=== PATIENT | female | born 1985 | race African-American/Black ===

== ENCOUNTER 2022-06-11 13:14 | Emergency (ER) | payer BC, MEDICAID ==
[~2022-06-11] VITALS: Ht 177.8 cm; Wt 105.0 kg
[2022-06-11] MEDS ORDERED: ONDANSETRON ODT 4 MG TAB PO ONE (14:00)
[2022-06-11] MEDS ORDERED: cloNIDine HCL 0.1 MG TAB PO ONE (14:00)
[2022-06-11] MEDS ORDERED: HYDROcodone-ACET 10/325MG TAB PO ONE (14:00)
[2022-06-11 14:31] LABS: Basophils # (auto) 0 10 ^3/uL (0-0.2); Basophils % (auto) 0.7 % (0.0-2.0); Eosinophils # (auto) 0.1 10 ^3/uL (0-0.8); Hematocrit 46.2 % (36.0-46.0); Hemoglobin 15.4 g/dL (12.2-16.2); Lymphocytes # (auto) 1.5 10 ^3/uL (0.4-5.4); Lymphocytes % (auto) 31.1 % (10.0-50.0); Mean Corpuscular Hemoglobin 29.6 pg (28.0-32.0); Mean Corpuscular Hgb Conc. 33.3 g/dL (32.0-36.0); Mean Corpuscular Volume 88.9 fL (80.0-100.0); Monocytes # (auto) 0.4 10 ^3/uL (0-1.3); Monocytes % (auto) 8.2 % (0.0-12.0); Neutrophils # (auto) 2.7 10 ^3/uL (1.6-8.6); Nucleated Red Blood Cells % 0.2 %; Red Blood Cells 5.19 10^6/uL (4.0-5.20); Red Cell Distribution Width 14.4 % (11.8-14.3); White Blood Cell 4.8 10^3/uL (4.4-10.8)
[2022-06-11 14:48] LABS: Albumin 3.4 g/dL (3.4-5.0); BUN/Creatinine Ratio 8.9; Calcium 8.8 mg/dL (8.5-10.1); Potassium 3.8 mmol/L (3.5-5.1)
[2022-06-11 14:51] LABS: Bilirubin, Total 0.2 mg/dL (0.2-1.0); Total Protein 7.7 g/dL (6.4-8.2)
[2022-06-11 16:25] VITALS: BP 139/95
== END 2022-06-11 16:27 | disposition home or self-care (01) ==
LOC: ER 13:14
DX: G43.909 Migraine, unspecified, not intractable, without status migrainosus (principal); I16.0 Hypertensive urgency; Z90.89 Acquired absence of other organs
CPT/HCPCS: 36415; 70450; 80053; 85025; 99284; Q0162

== ENCOUNTER 2022-12-08 04:23 | Emergency (ER) | payer BC, MEDICAID ==
[~2022-12-08] VITALS: Ht 152.4 cm; Wt 94.6 kg
[~2022-12-08 04:23] MED LIST: PRED20TA2 PO
[2022-12-08] MEDS ORDERED: METOCLOPRAMIDE HCL 5MG/ml INJ 2ml VIAL IV ONE (04:45)
[2022-12-08] MEDS ORDERED: cloNIDine HCL 0.1 MG TAB PO ONE (04:45)
[2022-12-08 05:02] LABS: Basophils # (auto) 0 10 ^3/uL (0-0.2); Basophils % (auto) 0.3 % (0.0-2.0); Eosinophils # (auto) 0.1 10 ^3/uL (0-0.8); Eosinophils % (auto) 1.6 % (0.0-7.0); Hematocrit 44.7 % (36.0-46.0); Hemoglobin 15.5 g/dL (12.2-16.2); Lymphocytes # (auto) 1.6 10 ^3/uL (0.4-5.4); Lymphocytes % (auto) 27.5 % (10.0-50.0); Mean Corpuscular Hemoglobin 30.2 pg (28.0-32.0); Mean Corpuscular Hgb Conc. 34.7 g/dL (32.0-36.0); Mean Corpuscular Volume 87.1 fL (80.0-100.0); Monocytes # (auto) 0.4 10 ^3/uL (0-1.3); Monocytes % (auto) 6.3 % (0.0-12.0); Neutrophils # (auto) 3.6 10 ^3/uL (1.6-8.6); Neutrophils % (auto) 64.3 % (37.0-80.0); Nucleated Red Blood Cells % 0.2 %; Red Blood Cells 5.13 10^6/uL (4.0-5.20); Red Cell Distribution Width 14.4 % (11.8-14.3); White Blood Cell 5.7 10^3/uL (4.4-10.8)
[2022-12-08 05:19] LABS: Albumin 3.7 g/dL (3.4-5.0); BUN/Creatinine Ratio 9.3 (10.0-20.0); Calcium 9.5 mg/dL (8.5-10.1); Potassium 3.8 mmol/L (3.5-5.1)
[2022-12-08 05:22] LABS: Bilirubin, Total 0.3 mg/dL (0.2-1.0); Total Protein 7.5 g/dL (6.4-8.2)
[2022-12-08 06:23] LABS: Urine Bacteria NONE SEEN /hpf (None Seen); Urine Blood 1+ /uL (Negative); Urine Mucus FEW (None Seen); Urine Specific Gravity 1.011 (1.001-1.035); Urine WBC 12 /hpf (0 - 5)
[2022-12-08 06:37] LABS: Alcohol, Urine < 3.0 mg/dL (0-10); Amphetamine Screen, Urine NEGATIVE (NEGATIVE); Barbiturate Scree,Urine NEGATIVE (NEGATIVE); Benzodiazephine Screen, Urine NEGATIVE (NEGATIVE); Cannabinoid Screen, Urine NEGATIVE (NEGATIVE)
[2022-12-08 06:47] LABS: Cocaine Screen, Urine NEGATIVE (NEGATIVE); Opiate Scree,Urine POSITIVE (NEGATIVE); Phencyclidine Screen, Urine NEGATIVE (NEGATIVE)
[2022-12-08] MEDS ORDERED: NITR-87 PO (07:16)
[2022-12-08] MEDS ORDERED: IBU600T PO (07:16)
[2022-12-08 07:28] VITALS: BP 130/88
== END 2022-12-08 07:36 | disposition home or self-care (01) ==
LOC: ER 04:23
DX: N39.0 Urinary tract infection, site not specified (principal); I16.0 Hypertensive urgency; I10 Essential (primary) hypertension; Z98.890 Other specified postprocedural states
CPT/HCPCS: 36415; 70450; 71045; 80053; 80307; 81001; 84484; 85025; 93005; 96374; 99285; J2765

== ENCOUNTER → 2023-09-21 | Emergency (ER) | payer BC, MEDICAID ==
[~2023-09-21] VITALS: Ht 152.4 cm; Wt 98.1 kg
[~2023-09-21] MED LIST changes: +IBU600T PO; +IOHEXOL 350 MG/ML 100ML IJ ONE; +NITR-87 PO
[2023-09-21] MEDS: LABETALOL HCL 5 MG/ML 4ML SYRINGE IV ONE (11:40)
[2023-09-21 12:06] VITALS: PULSE 86; RESP 21; O2SAT 100
[2023-09-21 12:20] LABS: Basophils # (auto) 0.1 10 ^3/uL (0-0.2); Basophils % (auto) 0.8 % (0.0-2.0); Eosinophils # (auto) 0.1 10 ^3/uL (0-0.8); Hematocrit 43.6 % (36.0-46.0); Hemoglobin 14.3 g/dL (12.2-16.2); Lymphocytes # (auto) 1.1 10 ^3/uL (0.4-5.4); Lymphocytes % (auto) 17.4 % (10.0-50.0); Mean Corpuscular Hemoglobin 28.7 pg (28.0-32.0); Mean Corpuscular Hgb Conc. 32.9 g/dL (32.0-36.0); Mean Corpuscular Volume 87.3 fL (80.0-100.0); Monocytes # (auto) 0.4 10 ^3/uL (0-1.3); Monocytes % (auto) 7.3 % (0.0-12.0); Neutrophils # (auto) 4.5 10 ^3/uL (1.6-8.6); Neutrophils % (auto) 73.5 % (37.0-80.0); Nucleated Red Blood Cells % 0.1 %; Red Blood Cells 4.99 10^6/uL (4.0-5.20); Red Cell Distribution Width 14.9 % (11.8-14.3); White Blood Cell 6.1 10^3/uL (4.4-10.8)
[2023-09-21 12:34] LABS: Partial Thromboplastin Time 32.5 SEC (24.5-34.5); Prothrombin Time 10.5 sec (9.3-11.8)
[2023-09-21 12:35] VITALS: BP 136/73; PULSE 104; RESP 22; TEMP 98.7; O2SAT 100
[2023-09-21 12:42] LABS: Alanine Aminotransferase 15 U/L (7-40); Albumin 4.3 g/dL (3.2-4.8); Alkaline Phosphatase 75 U/L (46-116); Anion Gap 7 (5-15); Aspartate Aminotransferase 25 U/L (13-40); BUN/Creatinine Ratio 8.2 (10.0-20.0); Bilirubin, Total 0.5 mg/dL (0.2-1.0); Blood Urea Nitrogen 8 mg/dL (9-23); Calcium 8.9 mg/dL (8.7-10.4); Carbon Dioxide 24 mmol/L (20-30); Chloride 107 mmol/L (98-107); Glucose 96 mg/dL (74-106); Potassium 3.4 mmol/L (3.5-5.1); Sodium 138 mmol/L (136-145); Total Protein 7.2 g/dL (5.7-8.2)
[2023-09-21 12:48] LABS: Acetaminophen < 2.0 UG/ML (10.0-20.0)
[2023-09-21 12:51] LABS: Salicylate < 3.0 mg/dL (2.8-20.0)
== END | disposition short-term general hospital (02) ==
LOC: ER 11:06
DX: S06.6X0A Traumatic subarachnoid hemorrhage without loss of consciousness, initial encounter (principal); R79.89 Other specified abnormal findings of blood chemistry; R41.82 Altered mental status, unspecified; I16.1 Hypertensive emergency; I10 Essential (primary) hypertension; W22.8XXA Striking against or struck by other objects, initial encounter; Y93.89 Activity, other specified; Y92.89 Other specified places as the place of occurrence of the external cause; Y99.8 Other external cause status
CPT/HCPCS: 36415; 70450; 71045; 80053; 80320; 80329; 83735; 83880; 84484; 85025; 85610; 85730; 93005; 96374; 99291; J3490